=== PATIENT | female | born 1965 | race Caucasian/White ===

== ENCOUNTER → 2023-08-30 15:28 | Outpatient (BNVA) | payer MEDICARE, BC, SELFPAY | PROVIDERS: Family Provider Electrodiagnostic Medicine; Visit Provider Nurse Practitioner Family | DX: M25.572 Pain in left ankle and joints of left foot (principal) | CPT/HCPCS: 73610 ==

== ENCOUNTER → 2024-06-05 10:53 | Outpatient (CLI) | payer MEDICARE, BC, SELFPAY ==
--- NOTE | 2024-06-05 10:59 | CT_ITS ---
WS: [id number] LDCT LUNG CANCER SCREENING TECHNIQUE: Noncontrast CT of the chest with coronal and sagittal reformatted images. CLINICAL INFORMATION: NICOTINE DEPENDENCE, CIGARETTES COMPARISON: None. DLP: 69.71 mGy.cm DIvol: Mean CTDIvol: 1.50 (mGy) All CT scans at [facility] use at least one of these dose optimization techniques: automat ed exposure control; mA and/or kV adjustment per patient size (includes targeted exams where dose is matched to clinical indication); or iterative reconstruction. FINDINGS: Several noncalcified nodules in the RIGHT upper lobe and RIGHT middle lobe with subpleural nodularity. Largest nodules measure approximately 4 to 5 mm. Slight bibasal atelectasis. 5 mm nodule LEFT upper lobe anteriorly. 3 mm noncalcified nodule LEFT lower lobe. Normal caliber thoracic aorta. Aortic calcification. Mild coronary calcification. No mediastinal or h ilar lymphadenopathy. No axillary lymphadenopathy. Bilateral breast implants. Adrenal glands are norm al. Normal GE junction. CT/CT lung screening [id number] IMPRESSION: LUNG-RADS: 2-Benign Appearance or Behavior FOLLOW UP: 12 Month: Continue annual screening with LDCT
== END | disposition home or self-care (01) ==
LOC: RAD 10:55
PROVIDERS: PCP Electrodiagnostic Medicine; Visit Provider Electrodiagnostic Medicine
DX: Z12.2 Encounter for screening for malignant neoplasm of respiratory organs (principal); F17.210 Nicotine dependence, cigarettes, uncomplicated; R91.8 Other nonspecific abnormal finding of lung field; I70.0 Atherosclerosis of aorta; Z98.82 Breast implant status
CPT/HCPCS: 71271

== ENCOUNTER 2025-02-05 08:35 | Outpatient (CLI) | payer MEDICARE, BC, SELFPAY ==
--- NOTE | 2025-02-05 08:39 | MR_ITS ---
WS: [id number] MRI LUMBAR SPINE NONCONTRAST HISTORY: LUMBAR RADICULOPATHY COMPARISON: None available. TECHNIQUE: Sagittal and axial multisequence imaging is submitted. Mild cervical spondylosis. T3 and T4 hemangiomas. L4 anterolisthesis by 3.4 mm. Disc spaces and vertebral body heights are maintained. Disc spaces and vertebral body heights are well-preserved. Conus terminates normally at L1-2 disc level. L1-L2: Mild annular disc bulging without stenosis. Mild ligamentum flavum and facet arthritis. L2-L3: Mild annular disc bulging with facet and ligamentum flavum hypertrophy. No stenosis. L3-L4: Mild annular disc bulging. Mild effacement of ventral CSF with with bilateral ligamentum flavum and facet arthritis. Greater facet arthritis and ligamentum flavum arthropathy on the LEFT. Minimal RIGHT foraminal encroachment. L4-L5: Marked annular disc bulging encroaching on the ventral thecal sac. Severe ligamentum flavum and facet arthritis. Fluid in the facet joints with mild widening. Encroachment upon the subarticular recesses and deformity of the traversing L5 nerve roots. Mild bilateral foraminal stenosis, RIGHT greater than LEFT. Severe central and bilateral subarticular recess stenosis. Small facet joint cyst, bilateral. L5-S1: Diffuse annular disc bulge with a central disc protrusion which is slightly to the RIGHT of midline. Minimal encroachment upon the S1 nerve roots. Paravertebral soft tissues are normal. MR/MR lumbar spine wo con* [id number] IMPRESSION: 1. No acute lumbar spine fracture. 2. L4-5: Severe central and bilateral subarticular recess stenosis due to disc , ligamentum flavum and facet arthritis and L4 anterolisthesis. 3. L4-5: Mild bilateral foraminal stenosis, RIGHT greater than LEFT. 4. L5-S1: Disc bulging with a central disc protrusion extending greatest to th e RIGHT with mild encroachment upon the S1 nerve roots. 5. L3-4: Minimal RIGHT foraminal stenosis.
== END 2025-02-05 08:36 | disposition home or self-care (01) ==
LOC: RAD 08:36
PROVIDERS: PCP Nurse Practitioner Family; Visit Provider Registered Nurse
DX: M54.16 Radiculopathy, lumbar region (principal); M43.16 Spondylolisthesis, lumbar region; M48.061 Spinal stenosis, lumbar region without neurogenic claudication; M24.28 Disorder of ligament, vertebrae; M47.896 Other spondylosis, lumbar region; M51.379 Other intervertebral disc degeneration, lumbosacral region without mention of lumbar back pain or lower extremity pain; D18.09 Hemangioma of other sites; M51.369 Other intervertebral disc degeneration, lumbar region without mention of lumbar back pain or lower extremity pain; R93.7 Abnormal findings on diagnostic imaging of other parts of musculoskeletal system; M71.38 Other bursal cyst, other site; M51.27 Other intervertebral disc displacement, lumbosacral region
CPT/HCPCS: 72148

== ENCOUNTER 2025-02-25 13:01 | Outpatient (CLI) | payer MEDICARE, BC, SELFPAY ==
--- NOTE | 2025-02-25 13:08 | XR_ITS ---
WS: [id number] SCREENING DEXA SCAN [employer] CLINICAL INFORMATION: ASYMPTOMATIC MENOPAUSAL STATE COMPARISON: None. FINDINGS: The L1-L4 bone mineral density measures 0.951 g/cm2. This corresponds to a T score score of -1.9 and Z score of -1.1. Left femoral neck bone mineral density measures 0.835 g/cm2. This corresponds to a T score of -1.4 and Z score of -0.7. Right femoral neck bone mineral density measures 0.809 g/cm2. This corresponds to a T score -1.6of and Z score of -1.0. Mean femoral neck bone mineral density measures 0.822 g/cm2. This corresponds to a T score of -1.5 and Z score of -0.8. XR/XR DEXA axial skeleton* [id number] IMPRESSION: Osteopenia lumbar spine. Osteopenia femoral necks. Patient's FRAX calculated 10 year probability for major osteoporotic fracture i s 10.6% and osteoporotic hip fracture is 1.6%.
== END 2025-02-25 13:02 | disposition home or self-care (01) ==
PROVIDERS: PCP Nurse Practitioner Family; Visit Provider Registered Nurse
DX: Z78.0 Asymptomatic menopausal state (principal); Z13.820 Encounter for screening for osteoporosis; M85.89 Other specified disorders of bone density and structure, multiple sites
CPT/HCPCS: 77080; 94010

== ENCOUNTER 2025-03-27 14:28 | Outpatient (RCR) | payer MEDICARE, BC, SELFPAY | END 2025-04-26 23:59 | disposition home or self-care (01) | LOC: SST 14:28 | PROVIDERS: Visit Provider Specialist | DX: R49.0 Dysphonia (principal); K21.9 Gastro-esophageal reflux disease without esophagitis; R05.3 Chronic cough | CPT/HCPCS: 92507; 92524 ==

== ENCOUNTER → 2025-03-31 11:12 | Outpatient (BNVA) | payer MEDICARE, BC, SELFPAY | PROVIDERS: PCP Nurse Practitioner Family; Visit Provider Internal Medicine Cardiovascular Disease | DX: R06.09 Other forms of dyspnea (principal); R53.83 Other fatigue; R73.03 Prediabetes; Z79.84 Long term (current) use of oral hypoglycemic drugs; E78.2 Mixed hyperlipidemia; I10 Essential (primary) hypertension; F17.210 Nicotine dependence, cigarettes, uncomplicated; R07.9 Chest pain, unspecified; Z98.61 Coronary angioplasty status | CPT/HCPCS: 93005; 99214 ==

== ENCOUNTER 2025-04-09 08:53 | Outpatient (CLI) | payer MEDICARE, BC, SELFPAY ==
--- NOTE | 2025-04-09 | ECG_ITS ---
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 Baseline heart rate was 81 beats per minute. Baseline blood pressure was 137/87 millimeters of mercury. Target heart rate was 159 beats per minute. Maximum heart rate achieved was 149, which was 93% of the target heart rate. Maximum blood pressure was 186/103 millimeters of mercury. Total exercise time was 2 minutes 59 seconds. Maximum METs achieved was 4.6, maximum VO2 was 16. The reason for ending the test was maximum effort achieved. The patient complained of shortness of breath during the stress test, which then resolved at the end of the test. ELECTROCARDIOGRAM: BASELINE: Showed sinus rhythm, normal axis, no significant ST-T changes at the baseline noted. EXERCISE: At the peak exercise level, no significant ST-T changes suggestive of ischemia noted. RECOVERY: During the recovery period, heart rate dropped appropriately. No significant ST-T changes in the recovery suggestive of ischemia noted. CONCLUSION: 1. Exercise capacity poor. 2. Heart rate response was tachycardia 3. Blood pressure response was hypertensive 4. Symptoms not suggestive of ischemia. 5. Electrocardiogram portion of the stress test was not suggestive of ischemia. Please note that due to low METS and shorter exercise time specificity and sensitivity of EKG portion of the stress test will be low Electronically Signed On 04-29-2025 22:24:19 CDT by FAUZIA BRUCE [email or web address]
[2025-04-09 09:13] VITALS: BMI 29.2
--- NOTE | 2025-04-09 09:14 | NMCV_ITS ---
NM melvin perf SPECT r/s* [id number] Dania Ford Age: 59 Gender: F : 1965 Exam Date: 04/09/2025 09:55 Ordering Phys: Edwina Rendon MD ([email or web address]) Technologist: LINDA Hinkle Exam Location: [facility] Indications: cp STRESS TEST Please see separate stress test report in [facility] for full findings IMAGE PROTOCOL Rest/Stress 1 Exercise Day Radiopharmaceutical Dose (mCi) Administration Site Administered by Rest: Tc-99m 10.3 IV LINDA Hinkle Sestamibi Stress:Tc-99m 32.8 IV Annamaria White TERMINOLOGIST Sestamibi Rest: 09-Apr-2025 60 Discovery 630 Stress: 09-Apr-2025 30 Discovery 630 Radiopharmaceutical was injected at 88 % maximum heart rate. Images obtained in supine and prone position. SPECT RESULTS Technical Quality: Good Raw Data Analysis: Normal Image Corrections: No attenuation or motion correction applied Summed Stress Score: 0 Summed Rest Score: 0 Summed Difference Score: 0 PERFUSION FINDINGS SPECT images demonstrate homogeneous tracer distribution throughout the myocardium. FUNCTIONAL RESULTS (calculated via Gated SPECT) Stress Image LV EF (%): 73 Stress EDV (mL):75 TID: 0.96 Stress ESV (mL):20 FUNCTIONAL FINDINGS: There is normal left ventricular systolic function. IMPRESSIONS Myocardial perfusion imaging is normal. Maddison Hatch MD (Electronically Signed) Final Date: 10 Apr 2025 17:04 S
[2025-04-09 10:38] VITALS: BP 151/97; PULSE 92
== END 2025-04-09 08:54 | disposition home or self-care (01) ==
LOC: CDL 08:54
PROVIDERS: PCP Nurse Practitioner Family; Visit Provider Internal Medicine Cardiovascular Disease
DX: R06.02 Shortness of breath (principal); R00.0 Tachycardia, unspecified; R93.1 Abnormal findings on diagnostic imaging of heart and coronary circulation
CPT/HCPCS: 36415; 78452; 93017; A9500

== ENCOUNTER 2025-05-09 09:15 | Outpatient (CLI) | payer MEDICARE, BC, SELFPAY ==
--- NOTE | 2025-05-09 09:15 | USCV_ITS ---
Dania Ford Age: 60 Gender: F : 1965 Exam Date: 05/09/2025 09:39 Ordering Phys: Edwina Rendon MD ([email or web address]) Technologist: Prakash العلي [place] [facility] [place]: sob BP: 144 / 100 HR: 65 Rhythm: Sinus Technical Quality: Adequate MEASUREMENTS (Male / Female) Normal Values 2D ECHO LV Diastolic Diameter PLAX 3.9 cm 4.2 - 5.9 / 3.9 - 5.3 cm IVS Diastolic Thickness 1.1 cm 0.6 - 1.0 / 0.6 - 0.9 cm IVS Systolic Thickness 1.8 cm LVPW Diastolic Thickness 2.1 cm 0.6 - 1.0 / 0.6 - 0.9 cm LVPW Systolic Thickness 2.3 cm LVOT Diameter 2.1 cm LV Ejection Fraction 2D Teich 59.7 % LV Ejection Fraction MOD 4C 71.9 % LV Ejection Fraction MOD 2C 67.5 % LV Ejection Fraction 2C AL 68.0 % LA Diameter 3.4 cm RA Systolic Volume 4C AL 53.4 ml RA Systolic Volume 4C MOD 52.3 ml LA Sys Volume AL 38.2 cm cubed LA Sys Volume Index AL 19.5 cm cubed/m squared Aorta at Sinotubular Diameter 2.3 cm IVC Diameter 1.9 cm M-MODE LA Ao Ratio MM 1.2 AV Cusp Separation MM 1.6 cm DOPPLER AV Peak Velocity 119.0 cm/s LVOT Peak Velocity 100.0 cm/s AV Area Cont Eq vti 2.8 cm squared AV Area Cont Eq pk 2.8 cm squared MV Peak Velocity 116.0 cm/s MV Area PHT 4.8 cm squared Mitral E to A Ratio 0.7 TR Peak Velocity 320.0 cm/s TR Peak Gradient 41.0 mmHg TR Mean Velocity 268.0 cm/s TR Mean Gradient 29.7 mmHg TR Velocity Time Integral 107.1 cm PV Peak Velocity 78.0 cm/s RV Ejection Time 0.3 s FINDINGS Left Ventricle Normal left ventricular size and systolic function, EF 68%. No regional wall motion abnormalities. Mild left ventricular hypertrophy. Grade I/IV diastolic dysfunction (abnormal relaxation filling pattern), normal to mildly elevated filling pressures. Right Ventricle The right ventricle is normal in size and function. Right Atrium The right atrium is normal in size. Left Atrium The left atrium is normal in size. Mitral Valve Trace mitral valve regurgitation. Aortic Valve No gross abnormalities noted Tricuspid Valve No gross abnormalities no Pulmonic Valve Pulmonic valve not well visualized. Pericardium Normal pericardium without effusion. Aorta Normal ascending aorta dimension. IVC Normal inferior vena cava. CONCLUSIONS Normal left ventricular size and systolic function, EF 68%. No regional wall motion abnormalities. Mild left ventricular hypertrophy. Grade I/IV diastolic dysfunction (abnormal relaxation filling pattern), normal to mildly elevated filling pressures. Trace mitral valve regurgitation. There is no pericardial effusion. There are no intracardiac masses. No similar previous studies are available for comparison Dr Edwina Rendon MD FACC (Electronically Signed) Final Date: 09 May 2025 21:20 S
--- NOTE | 2025-05-09 09:50 | MM_ITS ---
WS: [id number] VIEWS: MLO and CC views both breasts. 3D digital tomosynthesis is also included in this exam. Comparison made with prior exam of 04/16/2014, 06/18/2015, 08/10/2016, 06/25/2018, 12/23/2019, 05/19/2021, 05/20/2022, 05/19/2023.. Findings: The breasts are heterogeneously dense, which may obscure small masses. No suspicious mass, tumor calcification or architectural distortion. 1.5 cm asymmetric density seen in the lateral RIGHT breast on the cc view is stable when compared to previous studies as far back as 04/16/2014. MM/MM scr BI tomosynthesis [id number] Impression: BI-RADS: 2 - Benign FOLLOW-UP: 1 Year Follow-up This mammogram was also analyzed by the Computer Aided Detection System R2 Imag e Orthopedic Dentist.
== END 2025-05-09 09:16 | disposition home or self-care (01) ==
LOC: RAD 09:15
PROVIDERS: PCP Nurse Practitioner Family; Visit Provider Internal Medicine Cardiovascular Disease
DX: Z12.31 Encounter for screening mammogram for malignant neoplasm of breast (principal); R06.09 Other forms of dyspnea; R92.333 Mammographic heterogeneous density, bilateral breasts; N64.89 Other specified disorders of breast; R93.1 Abnormal findings on diagnostic imaging of heart and coronary circulation
CPT/HCPCS: 77063; 77067; 93306

== ENCOUNTER → 2025-10-15 10:30 | Outpatient (BNVA) | payer MEDICARE, BC, SELFPAY | PROVIDERS: PCP Nurse Practitioner Family; Visit Provider Nurse Practitioner Family | DX: E78.5 Hyperlipidemia, unspecified (principal); R73.03 Prediabetes; I10 Essential (primary) hypertension; J44.9 Chronic obstructive pulmonary disease, unspecified; I83.90 Asymptomatic varicose veins of unspecified lower extremity; F17.210 Nicotine dependence, cigarettes, uncomplicated | CPT/HCPCS: 99213 ==

== ENCOUNTER 2025-11-05 12:57 | Outpatient (CLI) | payer MEDICARE, BC, SELFPAY ==
--- NOTE | 2025-11-05 13:02 | CT_ITS ---
WS: [id number] LDCT LUNG CANCER SCREENING HISTORY: LUNG CANCER SCREENING TECHNIQUE: Axial imaging performed from the apices to 1 cm below the costophrenic angles. Coronal and sagittal reformats are submitted with axial MIP series. All CT scans at [facility] use at least one of these dose optimization techniques: automated exposure control; mA and/or kV adjustment per patient size (includes targeted exams where dose is matched to clinical indication); or iterative reconstruction. DLP: 73.90 mGy.cm DIvol: Mean CTDIvol: 1.50 (mGy) COMPARISON: 06/05/2024 Diagnostic quality: Satisfactory Lungs: Numerous bilateral pulmonary nodules are identified in multiple lobes. Largest nodules are approximately 5 mm in the RIGHT upper and RIGHT lower lobes. There are no new or enlarging nodules. No pneumonia. Heart: Normal size heart with no pericardial effusion.. Other findings: Mild atherosclerosis aorta. No adenopathy. Bilateral breast implants. Small hiatal hernia. No adrenal mass. CT/CT lung screening [id number] IMPRESSION: LUNG-RADS: 2-Benign Appearance or Behavior FOLLOW UP: 12 Month: Continue annual screening with LDCT OTHER FINDINGS (S MODIFIER): None.
== END 2025-11-05 12:58 | disposition home or self-care (01) ==
LOC: RAD 12:58
PROVIDERS: PCP Nurse Practitioner Acute Care; Visit Provider Nurse Practitioner Acute Care
DX: Z12.2 Encounter for screening for malignant neoplasm of respiratory organs (principal); F17.210 Nicotine dependence, cigarettes, uncomplicated; R91.8 Other nonspecific abnormal finding of lung field; I70.0 Atherosclerosis of aorta; K44.9 Diaphragmatic hernia without obstruction or gangrene; Z98.82 Breast implant status
CPT/HCPCS: 71271